=== PATIENT | male | born 1985 ===

== ENCOUNTER → 2021-05-16 | Outpatient (CLI) | payer OTHER ==
--- NOTE | 2021-05-16 15:18 | REP ---
INDICATION: RT KNEE PAIN. COMPARISON: None. TECHNIQUE: Three views right knee. FINDINGS: There is no evidence of acute fracture, dislocation or intrinsic bone disease. The joint spaces appear normal. There appears to be a small suprapatellar effusion. IMPRESSION: Small suprapatellar effusion. <Electronically signed by Alirio Hill > 05/16/21 [id number]
== END ==
LOC: M SOG 13:52
PROVIDERS: ATTEND Orthopaedic Surgery
DX: M25.561 Pain in right knee (principal)